=== PATIENT | male | born 1975 | race Caucasian/White ===

== ENCOUNTER 2022-10-30 05:51 | Emergency (ER) | payer BC ==
[2022-10-30] MEDS ORDERED: AZITHROMYCIN 250 MG TAB ONE (06:22)
[2022-10-30 07:36] LABS: SARS-COV-2 RT PCR NEGATIVE (NEGATIVE)
--- NOTE | 2022-10-30 07:45 | EDPHYS ---
Physician Documentation [facility] Name: John Villalobos Age: 47 yrs Sex: Male : 1975 Arrival Date: 10/30/2022 Time: 06:00 Bed 7 Private MD: Teja Castro HPI: 10/30 06:08 This 47 yrs old Male presents to ER via Ambulatory with complaints of rony Breathing Difficulty. 06:08 The patient has shortness of breath at rest, with light activity. Onset: The rony symptoms/episode began/occurred 1 day(s) ago. Duration: The symptoms are continuous. Historical: - Allergies: 06:02 No Known Allergies; kd3 - Home Meds: 06:02 losartan oral [Active]; amlodipine oral [Active]; atorvastatin oral [Active]; kd3 - PMHx: 06:02 fatty liver disease; Hypercholesterolemia; Hypertensive disorder; kd3 - Immunization history:: Adult Immunizations up to date, Client reports receiving the Ernesto \T\ Ernesto single-dose vaccine. - Social history:: Smoking status: Patient denies any tobacco usage or history of. ROS: 06:54 Constitutional: Negative for fever, chills, and weight loss, Eyes: Negative for injury, rony pain, redness, and discharge, ENT: Negative for injury, pain, and discharge, Neck: Negative for injury, pain, and swelling, Cardiovascular: Negative for chest pain, palpitations, and edema, Abdomen/GI: Negative for abdominal pain, nausea, vomiting, diarrhea, and constipation, Back: Negative for injury and pain, : Negative for injury, bleeding, discharge, and swelling, MS/Extremity: Negative for injury and deformity, Skin: Negative for injury, rash, and discoloration, Neuro: Negative for headache, weakness, numbness, tingling, and seizure, Psych: Negative for depression, anxiety, suicide ideation, homicidal ideation, and hallucinations, Allergy/Immunology: Negative for hives, rash, and allergies, Endocrine: Negative for neck swelling, polydipsia, polyuria, polyphagia, and marked weight changes, Hematologic/Lymphatic: Negative for swollen nodes, abnormal bleeding, and unusual bruising. 06:54 Respiratory: Positive for cough, shortness of breath. Exam: 06:54 Constitutional: This is a well developed, well nourished patient who is awake, alert, rony and in no acute distress. Head/Face: Normocephalic, atraumatic. Eyes: Pupils equal round and reactive to light, extra-ocular motions intact. Lids and lashes normal. Conjunctiva and sclera are non-icteric and not injected. Cornea within normal limits. Periorbital areas with no swelling, redness, or edema. Neck: Trachea midline, no thyromegaly or masses palpated, and no cervical lymphadenopathy. Supple, full range of motion without nuchal rigidity, or vertebral point tenderness. No Meningismus. Chest/axilla: Normal chest wall appearance and motion. Nontender with no deformity. No lesions are appreciated. Cardiovascular: Regular rate and rhythm with a normal S1 and S2. No gallops, murmurs, or rubs. Normal PMI, no JVD. No pulse deficits. Respiratory: Lungs have equal breath sounds bilaterally, clear to auscultation and percussion. No rales, rhonchi or wheezes noted. No increased work of breathing, no retractions or nasal flaring. Abdomen/GI: Soft, non-tender, with normal bowel sounds. No distension or tympany. No guarding or rebound. No evidence of tenderness throughout. Back: No spinal tenderness. No costovertebral tenderness. Full range of motion. Male : Normal genitalia with no discharge or lesions. Skin: Warm, dry with normal turgor. Normal color with no rashes, no lesions, and no evidence of cellulitis. MS/ Extremity: Pulses equal, no cyanosis. Neurovascular intact. Full, normal range of motion. Neuro: Awake and alert, GCS 15, oriented to person, place, time, and situation. Cranial nerves II-XII grossly intact. Motor strength 5/5 in all extremities. Sensory grossly intact. Cerebellar exam normal. Normal gait. Psych: Awake, alert, with orientation to person, place and time. Behavior, mood, and affect are within normal limits. 06:54 ECG was reviewed by the Attending Physician. Vital Signs: 06:00 BP 143 / 93; Pulse 92; Resp 16; Temp 98.4(O); Pulse Ox 100% on R/A; Weight 78.02 kg; kd3 Height 5 ft. 8 in. (172.72 cm); Pain 0/10; 07:27 BP 113 / 81; Pulse 77; Resp 18; Pulse Ox 97% on R/A; ph 07:53 BP 113 / 81; Pulse 79; Resp 18; Pulse Ox 98% ; Pain 0/10; ll1 06:00 Body Mass Index 26.15 (78.02 kg, 172.72 cm) kd3 MDM: 06:06 Patient medically screened. rony 07:12 Differential diagnosis: reactive airway disease. Antibiotic administration: Not rony indicated, the patient does not have an appreciated infiltrate. Immunization status:. Data reviewed: vital signs, nurses notes, lab test result(s), EKG. Consideration of Admission/Observation Escalation of care including admission/observation considered. 10/30 06:08 Order name: COVID-19/FLU A+B; Complete Time: 07:45 rony 10/30 06:08 Order name: Chest Pa And Lat (2 Views) XRAY rony EC:54 Rate is 83 beats/min. Rhythm is regular. QRS [place] is Normal. DC interval is normal. QRS rony interval is normal. QT interval is normal. No Q waves. T waves are Normal. No ST changes noted. Clinical impression: Normal ECG and No evidence of ischemia. Interpreted by me. Reviewed by me. Administered Medications: 06:20 Drug: Zithromax (azithromycin) 500 mg Route: PO; ll3 07:55 Follow up: Response: No adverse reaction ll1 Disposition Summary: 10/30/22 07:45 Discharge Ordered Location: Home rony Problem: new rony Symptoms: have improved rony Condition: Stable rony Diagnosis - Acute upper respiratory infection, unspecified rony - Palpitations rony Followup: rony - With: Private Physician - When: 2 - 3 days - Reason: Recheck today's complaints, Continuance of care, Re-evaluation by your physician Discharge Instructions: - Discharge Summary Sheet rony - Palpitations rony - Cool Mist Vaporizer rony - Upper Respiratory Infection, Adult, [id number] rony - Palpitations, [id number] rony - Cough, Adult rony Forms: - Medication Reconciliation Form rony - Thank You Letter rony - Antibiotic Education rony - Prescription Opioid Use rony - Work release form kj1 Prescriptions: - Zithromax Z-Naveed 250 mg Oral Tablet - take 1 tablet by ORAL route as directed for 5 days Day 1 - take two (2) tablets rony one time. Day 2, 3, 4 , 5 take one (1) tablet once daily.; 6 tablet; Refills: 0, Product Selection Permitted - Medrol (Naveed) 4 mg Oral Tablets, Dose Pack - take 1 tablet by ORAL route as directed - follow package instructions; 1 rony packet; Refills: 0, Product Selection Permitted Signatures: Dispatcher [employer] Teja Herron, Madelaine Olivier MD, cha, RN RN ll3 Em Pelaez RN RN kd3 Nick Wiley RN ll1
--- NOTE | 2022-10-30 07:45 | ER ---
Nurse's Notes [facility] Name: John Villalobos Age: 47 yrs Sex: Male : 1975 Arrival Date: 10/30/2022 Time: 06:00 Bed 7 Private MD: Diagnosis: Acute upper respiratory infection, unspecified;Palpitations Presentation: 10/30 06:00 Chief complaint: Patient states: I started to go to work this morning around 5 and i am kd3 having a bit of a hard time breathing. I was sick a few weeks ago but i had gotten better. I do feel pretty congested. Coronavirus screen: Vaccine status: Patient reports receiving the 2nd dose of the covid vaccine. Ebola Screen: No symptoms or risks identified at this time. Initial Sepsis Screen: Does the patient meet any 2 criteria? No. Patient's initial sepsis screen is negative. Does the patient have a suspected source of infection? No. Patient's initial sepsis screen is negative. Risk Assessment: Do you want to hurt yourself or someone else? Patient reports no desire to harm self or others. Onset of symptoms was October 30, 2022. 06:00 Method Of Arrival: Ambulatory kd3 06:00 Acuity: EFRAIN 4 kd3 Triage Assessment: 06:02 General: Appears in no apparent distress. Behavior is calm, cooperative. Pain: Denies kd3 pain. Neuro: Level of Consciousness is awake, alert, obeys commands, Oriented to person, place, time, situation. Cardiovascular: Patient's skin is warm and dry. Respiratory: Airway is patent Trachea midline Respiratory effort is even, unlabored, Respiratory pattern is regular, symmetrical. 06:07 Respiratory: Breath sounds are clear bilaterally. kd3 Historical: - Allergies: 06:02 No Known Allergies; kd3 - Home Meds: 06:02 losartan oral [Active]; amlodipine oral [Active]; atorvastatin oral [Active]; kd3 - PMHx: 06:02 fatty liver disease; Hypercholesterolemia; Hypertensive disorder; kd3 - Immunization history:: Adult Immunizations up to date, Client reports receiving the Ernesto \T\ Ernesto single-dose vaccine. - Social history:: Smoking status: Patient denies any tobacco usage or history of. Screenin:26 [facility] ED Fall Risk Assessment (Adult) History of falling in the last 3 months, ph including since admission No falls in past 3 months (0 pts) Confusion or Disorientation No (0 pts) Intoxicated or Sedated No (0 pts) Impaired Gait No (0 pts) Mobility Assist Device Used No (0 pt) Altered Elimination No (0 pt) Score/Fall Risk Level 0 - 2 = Low Risk Oriented to surroundings, Maintained a safe environment. Abuse screen: Denies threats or abuse. Denies injuries from another. Nutritional screening: No deficits noted. Tuberculosis screening: No symptoms or risk factors identified. Assessment: 06:00 General: Appears uncomfortable, Behavior is calm, cooperative. Pain: Denies pain. ll3 Neuro: Level of Consciousness is awake, alert, obeys commands, Oriented to person, place, time, situation, Reports dizziness. Cardiovascular: Reports lightheadedness, palpitations, shortness of breath, Denies chest pain, diaphoresis. Respiratory: Reports Difficulty breathing Airway is patent Respiratory effort is even, unlabored, Respiratory pattern is regular, symmetrical. Derm: Skin is pink, warm \T\ dry. 07:00 Reassessment: Report received from third shift lieutenant RN. ll1 07:54 Reassessment: No changes from previously documented assessment. Patient and/or family ll1 updated on plan of care and expected duration. Pain level reassessed. Patient is alert, oriented x 3, equal unlabored respirations, skin warm/dry/pink. Patient states feeling better. Patient states symptoms have improved. Vital Signs: 06:00 BP 143 / 93; Pulse 92; Resp 16; Temp 98.4(O); Pulse Ox 100% on R/A; Weight 78.02 kg; kd3 Height 5 ft. 8 in. (172.72 cm); Pain 0/10; 07:27 BP 113 / 81; Pulse 77; Resp 18; Pulse Ox 97% on R/A; ph 07:53 BP 113 / 81; Pulse 79; Resp 18; Pulse Ox 98% ; Pain 0/10; ll1 06:00 Body Mass Index 26.15 (78.02 kg, 172.72 cm) kd3 ED Course: 06:00 Patient arrived in ED. kd3 06:02 Triage completed. kd3 06:02 Arm band placed on right wrist. kd3 06:06 Teja Cordova MD is Attending Physician. rony 06:21 Chest Pa And Lat (2 Views) XRAY In Process Unspecified. EDMS 06:31 EKG completed in triage. Results shown to MD. ll3 07:25 Felicia Mendoza, RN is Primary Nurse. ph 07:27 Patient has correct armband on for positive identification. Bed in low position. Call light in reach. Side rails up X 1. Client placed on continuous cardiac and pulse oximetry monitoring. NIBP monitoring applied. 07:54 No provider procedures requiring assistance completed. Patient did not have IV access ll1 during this emergency room visit. Administered Medications: 06:20 Drug: Zithromax (azithromycin) 500 mg Route: PO; ll3 07:55 Follow up: Response: No adverse reaction ll1 Medication: 07:27 VIS not applicable for this client. ph Outcome: 07:45 Discharge ordered by . [facility] 07:55 Discharged to home ambulatory. ll1 07:55 Condition: stable 07:55 Discharge instructions given to patient, Instructed on discharge instructions, follow up and referral plans. medication usage, Demonstrated understanding of instructions, follow-up care, medications, Prescriptions given X 2. 07:55 Patient left the ED. ll1 Signatures: Dispatcher [employer] EDMS Teja Cordova MD MD cha Hall, Patricia, RN RN Nick Espinal RN RN ll1 Madelaine Vasquez RN RN ll3 Em Pelaez RN RN kd3
[2022-10-30 08:46] VITALS: BP 113/81; O2SAT 98
--- NOTE | 2022-10-30 14:09 | RAD REPORT ---
EXAM DESCRIPTION: RAD - Chest Pa And Lat (2 Views) - 10/30/2022 6:19 am CLINICAL HISTORY: 47 years Male, COUGH COMPARISON: None. TECHNIQUE: PA and Lateral views of the chest performed on 10/30/2022 at 6:15 AM FINDINGS: The lungs are well expanded and are clear. The costophrenic sulci are clear. There is no e vidence of a pneumothorax. The cardiac silhouette is normal in size. The mediastinal contours are normal. No acute osseous abnormalities are identified. There are mild degenerative changes along the thoracic spine. No focal soft tissue abnormalities are identified. IMPRESSION: No evidence of acute intrathoracic disease. Electronically signed by: Sasha Hancock DO 10/30/2022 6:29 AM PULVERIZER OPERATOR Due to temporary technical issues with the PACS/Fluency reporting system, reports are being signed by the in house radiologists without review as a courtesy to insure prompt reporting. The interpreting radiologist is fully responsible for the content of the report.
--- NOTE | 2022-10-31 17:35 | EKG ---
Test Date: 2022-10-30 Test Time: 06:26:39 Rate And Cost Analyst: LL MEASUREMENT RESULTS: Intervals: Rate: 83 IA: 148 QRSD: 100 QT: 376 QTc: 441 [place]: P: 37 IA: 148 QRS: 6 T: 32 INTERPRETIVE STATEMENTS: Normal sinus rhythm Normal ECG No previous ECG available for comparison Electronically Signed On 10-31-22 17:32:09 WATER PURIFICATION CHEMIST by Nicola Ingram
== END 2022-10-30 07:55 | disposition home or self-care (01) ==
LOC: ER 05:51
DX: J06.9 Acute upper respiratory infection, unspecified (principal); R00.2 Palpitations; K76.0 Fatty (change of) liver, not elsewhere classified; E78.00 Pure hypercholesterolemia, unspecified; I10 Essential (primary) hypertension; Z20.822 Contact with and (suspected) exposure to COVID-19
CPT/HCPCS: 0240U; 71046; Q0144; 93005

== ENCOUNTER 2025-02-21 05:17 | Emergency (ER) | payer BC ==
--- OUTSIDE RECORDS SUMMARY | 2025-02-21 05:22 | XMS REPORT | Continuity of Care Document ---
Demographics Address [address] [place] [address] Mobile Phone [phone] Email Address Preferred Language Mohawk Marital Status Unknown Mormonism Affiliation Unknown Race Unknown Additional Race(s) Unavailable Ethnic Group Unknown Author Name Unknown Address [address] [place] [address] [facility] Address [address] [place] [address] Care Team Providers Care Business Systems Advisor Name Role Phone ABBE FINLEY Primary Care Physician Unavailab ABBE De La Paz Attending Clinician Unavailable Abbe Finley MD Attending Clinician [phone] Abbe Finley MD Attending Clinician [phone] Doctor Unassigned, Eliza Attending Clinician U ALCIDES Judge Attending Clinician Unavailable Alcides Mendoza MD Attending Clinician [phone] Aubrie Mohan MA Attending Clinician UnaGrethcen Olivo Attending Clinician [phone] Rishi Smith MD, Randolph Islas Attending Clinician [phone] Otis Snoi DO Attending Clinician [phone] ALCIDES MENDOZA Admitting Clinician Unavailable ABBE FINLEY Admitting Clinician Unavailable Payers Payer Name Policy Type Policy Number Effective Date Expirati on Date Source Problems Condition Name Condition Details Condition Category Status Onset Date Resolution Date Last Treatment Date Treating Clinician Comments Source Essential hypertensi on Essential hypertensi on Disease Active 2018-10 00:00: 00 Overview: Formattin g of this note might be different from the original. Bp elevated in clinicDas h diet BP log [facility] Mixed hyperlipid emia Mixed hyperlipid emia Disease Active 2018-10 00:00: 00 Overview: Formattin g of this note might be different from the original. Monitor lipids [facility] Chronic kidney disease, unspecifie d CKD stage Chronic kidney disease, unspecifie d CKD stage Disease Active 2018-10 00:00: 00 Overview: Formattin g of this note might be different from the original. labsF/u with Nephrolog y [facility] Elevated alkaline phosphatas e level Elevated alkaline phosphatas e level Disease Active 2018-10 00:00: 00 Overview: Formattin g of this note might be different from the original. repeat hepatic functionG GT [facility] Prediabete s Prediabete s Disease Active 2018-10 00:00: 00 Overview: Formattin g of this note might be different from the original. low carb, low sugar dietIncre ángel aerobic exercisem onitor [id number] [facility] Class 1 obesity due to excess calories with serious comorbidit y and body mass index (BMI) of 32.0 to 32.9 in adult Class 1 obesity due to excess calories with serious comorbidit y and body mass index (BMI) of 32.0 to 32.9 in adult Disease Active 2018-10 00:00: 00 Overview: Formattin g of this note might be different from the original. Lifestyle modificat ion [facility] Class 1 obesity due to excess calories with serious comorbidit y and body mass index (BMI) of 32.0 to 32.9 in adult Class 1 obesity due to excess calories with serious comorbidit y and body mass index (BMI) of 32.0 to 32.9 in adult Disease Active 2018-10 00:00: 00 Overview: Formattin g of this note might be different from the original. Lifestyle modificat ion [facility] Allergies, Adverse Reactions, Alerts Allergy Name Allergy Type Status Severity Reaction(s) Onset Date Inactive Date Treating Clinician Comments Source NO KNOWN ALLERGIE S Drug Class Active [facility] Social History Social Habit Start Date Stop Date Quantity Comments Source [facility] 2024-10-18 00:00:00 2024-10-18 00:00:00 [facility] Alcoholic beverage intake 2024-10-18 00:00:00 2024-10-18 00:00:00 Ex-drinker (finding) [facility] Alcohol intake 2023-09-14 00:00:00 2023-09-14 00:00:00 Ex-drinker (finding) [facility] Exposure to SARS-CoV-2 (event) 2023-03-02 00:00:00 2023-03-12 07:06:00 Not sure [facility] Tobacco use and exposure 2022-09-11 00:00:00 2022-09-11 00:00:00 Smokeless tobacco non-user [facility] Sex assigned at 1975 00:00:00 1975 00:00:00 [facility] Smoking Status Start Date Stop Date Source Never smoked tobacco [facility] Medications Ordered Medication Name Filled Medication Name Start Date Stop Date Current Medication? Ordering Clinician Indication Dosage Frequency Signature (SIG) Comments Components Source losartan 100 mg tablet 10-18 00:00: 00 Yes [id number] 100mg Take 1 tablet by mouth in the morning. [facility] atorvastati n 10 mg tablet 10-18 00:00: 00 Yes [id number] 10mg Take 1 tablet by mouth at bedtime. [facility] amLODIPine 10 mg tablet 10-18 00:00: 00 Yes [id number] 10mg Take 1 tablet by mouth in the morning. [facility] losartan 100 mg tablet 2023-10 00:00: 00 10-18 00:00 :00 No [id number] 100mg Take 1 tablet by mouth in the morning. [facility] atorvastati n 10 mg tablet 2023-10 00:00: 00 10-18 00:00 :00 No [id number] 10mg Take 1 tablet by mouth at bedtime. [facility] amLODIPine 10 mg tablet 2023-10 00:00: 00 10-18 00:00 :00 No [id number] 10mg Take 1 tablet by mouth in the morning. [facility] losartan 100 mg tablet 2022-10 00:00: 00 09-29 00:00 :00 No [id number] 100mg Take 1 tablet by mouth in the morning. [facility] atorvastati n 10 mg tablet 2022-10 2- 00:00: 00 09-29 00:00 :00 No [id number] 10mg Take 1 tablet by mouth at bedtime. [facility] amLODIPine 10 mg tablet 2022-10 2- 00:00: 00 09-29 00:00 :00 No [id number] 10mg Take 1 tablet by mouth in the morning. [facility] amLODIPine 10 mg tablet 03-12 00:00: 00 09-14 00:00 :00 No [id number] 10mg Take 1 tablet by mouth in the morning. [facility] atorvastati n 10 mg tablet 03-12 00:00: 00 09-14 00:00 :00 No [id number] 10mg Take 1 tablet by mouth at bedtime. [facility] losartan 100 mg tablet 03-12 00:00: 00 09-14 00:00 :00 No [id number] 100mg Take 1 tablet by mouth in the morning. [facility] ibuprofen (IBU) tablet 800 mg 10-17 08:15: 00 10-17 08:41 :00 No 800mg 800 mg, Oral, ONCE, 1 dose, On Thu10/17/22 at 0215, CARMEN [facility] amLODIPine 10 mg tablet 2021-10 00:00: 00 03-12 00:00 :00 No [id number] 10mg Take 1 tablet by mouth in the morning. [facility] atorvastati n 10 mg tablet 2021-10- 00:00: 00 03-12 00:00 :00 No [id number] 10mg Take 1 tablet by mouth at bedtime. [facility] losartan 100 mg tablet 2021-10 00:00: 00 03-12 00:00 :00 No [id number] 100mg Take 1 tablet by mouth in the morning. [facility] amLODIPine 10 mg tablet 2021-10 0-11 00:00: 00 09-11 00:00 :00 No [id number] 10mg Take 1 tablet by mouth in the morning. [facility] losartan 100 mg tablet 2021-10 0-07 00:00: 00 09-11 00:00 :00 No [id number] 100mg Take 1 tablet by mouth in the morning. [facility] atorvastati n 10 mg tablet 2021-10 0-07 00:00: 00 09-11 00:00 :00 No [id number] 10mg Take 1 tablet by mouth at bedtime. [facility] AMLODIPINE 10 mg tablet 9- 00:00: 00 07-22 00:00 :00 No [id number] Take 1 tablet by mouth once daily [facility] LOSARTAN 100 mg tablet 7-05 00:00: 00 07-18 00:00 :00 No [id number] Take 1 tablet by mouth once daily [facility] ATORVASTATI N 10 mg tablet 0 7-05 00:00: 00 07-18 00:00 :00 No [id number] 10mg TAKE 1 TABLET BY MOUTH AT BEDTIME [facility] LOSARTAN 100 mg tablet 4-07 00:00: 00 04-15 00:00 :00 No [id number] Take 1 tablet by mouth once daily [facility] ATORVASTATI N 10 mg tablet 0 4-04 00:00: 00 04-15 00:00 :00 No [id number] 10mg TAKE 1 TABLET BY MOUTH AT BEDTIME [facility] amLODIPine 10 mg tablet 0 3-08 00:00: 00 06-12 00:00 :00 No [id number] 10mg Take 1 tablet by mouth daily. [facility] amLODIPine 5 mg tablet 2019-10 0-05 00:00: 00 10-18 00:00 :00 No [id number] 5mg Take 1 tablet by mouth daily. [facility] losartan 50 mg tablet 2019-10 00:00: 00 10-18 00:00 :00 No [id number] 50mg Take 1 tablet by mouth daily. [facility] atorvastati n 10 mg tablet 2019-10 00:00: 00 10-18 00:00 :00 No [id number] 10mg Take 1 tablet by mouth at bedtime. [facility] Immunizations Ordered Immunization Name Filled Immunization Name Date Status Comments Source Flu Injectable MDCK Pres-Free (FLUCELVAX) 2024-10-18 00:00:00 Completed [facility] Influenza Virus Vaccine Quad IM, Preserv and ABX Free 6 MO-64 YRS (FLUCELVAX) 2023-09-14 00:00:00 Completed [facility] Influenza Virus Vaccine Quad IM, Preserv and ABX Free 6 MO-64 YRS 2022-09-11 00:00:00 Completed [facility] Influenza Virus Vaccine Quad IM, Preserv and ABX Free 6 MO-64 YRS 2022-09-11 00:00:00 Completed [facility] Influenza Virus Vaccine Quad IM, Preserv and ABX Free 6 MO-64 YRS 2022-09-11 00:00:00 Completed [facility] Influenza Virus Vaccine Quad IM, Preserv and ABX Free 6 MO-64 YRS 2022-09-11 00:00:00 Completed [facility] Influenza Virus Vaccine Quad IM, Preserv and ABX Free 6 MO-64 YRS 2022-09-11 00:00:00 Completed [facility] Influenza Virus Vaccine Quad IM, Preserv and ABX Free 6 MO-64 YRS 2022-09-11 00:00:00 Completed [facility] Influenza Virus Vaccine Quad IM, Preserv and ABX Free 6 MO-64 YRS 2022-09-11 00:00:00 Completed [facility] Influenza Virus Vaccine Quad IM, Preserv and ABX Free 6 MO-64 YRS (FLUCELVAX) 2022-09-11 00:00:00 Completed Influenza Virus Vaccine Quad IM, Preserv and ABX Free 6 MO-64 YRS 2021-12-17 00:00:00 Completed [facility] Influenza Virus Vaccine Quad IM, Preserv and ABX Free 6 MO-64 YRS 2021-12-17 00:00:00 Completed [facility] Influenza Virus Vaccine Quad IM, Preserv and ABX Free 6 MO-64 YRS 2021-12-17 00:00:00 Completed [facility] Influenza Virus Vaccine Quad IM, Preserv and ABX Free 6 MO-64 YRS 2021-12-17 00:00:00 Completed [facility] Influenza Virus Vaccine Quad IM, Preserv and ABX Free 6 MO-64 YRS 2021-12-17 00:00:00 Completed [facility] Influenza Virus Vaccine Quad IM, Preserv and ABX Free 6 MO-64 YRS 2021-12-17 00:00:00 Completed [facility] Influenza Virus Vaccine Quad IM, Preserv and ABX Free 6 MO-64 YRS 2021-12-17 00:00:00 Completed [facility] Influenza Virus Vaccine Quad IM, Preserv and ABX Free 6 MO-64 YRS 2021-12-17 00:00:00 Completed [facility] Influenza Virus Vaccine Quad IM, Preserv and ABX Free 6 MO-64 YRS 2021-12-17 00:00:00 Completed [facility] Influenza Virus Vaccine Quad IM, Preserv and ABX Free 6 MO-64 YRS 2021-12-17 00:00:00 Completed [facility] Influenza Virus Vaccine Quad IM, Preserv and ABX Free 6 MO-64 YRS 2021-12-17 00:00:00 Completed [facility] Influenza Virus Vaccine Quad IM, Preserv and ABX Free 6 MO-64 YRS 2021-12-17 00:00:00 Completed [facility] Influenza Virus Vaccine Quad IM, Preserv and ABX Free 6 MO-64 YRS 2021-12-17 00:00:00 Completed [facility] Influenza Virus Vaccine Quad IM, Preserv and ABX Free 6 MO-64 YRS 2021-12-17 00:00:00 Completed [facility] Influenza Virus Vaccine Quad IM, Preserv and ABX Free 6 MO-64 YRS 2021-12-17 00:00:00 Completed [facility] Influenza Virus Vaccine Quad IM, Preserv and ABX Free 6 MO-64 YRS 2021-12-17 00:00:00 Completed [facility] Influenza Virus Vaccine Quad IM, Preserv and ABX Free 6 MO-64 YRS 2021-12-17 00:00:00 Completed [facility] Influenza Virus Vaccine Quad IM, Preserv and ABX Free 6 MO-64 YRS 2021-12-17 00:00:00 Completed [facility] Influenza Virus Vaccine Quad IM, Preserv and ABX Free 6 MO-64 YRS 2021-12-17 00:00:00 Completed [facility] Influenza Virus Vaccine Quad IM, Preserv and ABX Free 6 MO-64 YRS (FLUCELVAX) 2021-12-17 00:00:00 Completed [facility] Juan COVID-19 Vaccine Juna COVID-19 Vaccine 2021-05-15 00:00:00 Completed SARS-COV-2 COVID-19 JUAN/J&J VACCINE 2021-05-15 00:00:00 Completed [facility] SARS-COV-2 COVID-19 JUAN/J&J VACCINE 2021-05-15 00:00:00 Completed [facility] SARS-COV-2 COVID-19 JUAN/J&J VACCINE 2021-05-15 00:00:00 Completed [facility] SARS-COV-2 COVID-19 JUAN/J&J VACCINE 2021-05-15 00:00:00 Completed [facility] SARS-COV-2 COVID-19 JUAN/J&J VACCINE 2021-05-15 00:00:00 Completed [facility] SARS-COV-2 COVID-19 JUAN/J&J VACCINE 2021-05-15 00:00:00 Completed [facility] SARS-COV-2 COVID-19 JUAN/J&J VACCINE 2021-05-15 00:00:00 Completed [facility] SARS-COV-2 COVID-19 JUAN/J&J VACCINE 2021-05-15 00:00:00 Completed [facility] SARS-COV-2 COVID-19 JUAN/J&J VACCINE 2021-05-15 00:00:00 Completed [facility] SARS-COV-2 COVID-19 JUAN/J&J VACCINE 2021-05-15 00:00:00 Completed [facility] SARS-COV-2 COVID-19 JUAN/J&J VACCINE 2021-05-15 00:00:00 Completed [facility] SARS-COV-2 COVID-19 JUAN/J&J VACCINE 2021-05-15 00:00:00 Completed [facility] SARS-COV-2 COVID-19 JUAN/J&J VACCINE 2021-05-15 00:00:00 Completed [facility] SARS-COV-2 COVID-19 JUAN/J&J VACCINE 2021-05-15 00:00:00 Completed [facility] SARS-COV-2 COVID-19 JUAN/J&J VACCINE 2021-05-15 00:00:00 Completed [facility] SARS-COV-2 COVID-19 JUAN/J&J VACCINE 2021-05-15 00:00:00 Completed [facility] SARS-COV-2 COVID-19 JUAN/J&J VACCINE 2021-05-15 00:00:00 Completed [facility] SARS-COV-2 COVID-19 JUAN/J&J VACCINE 2021-05-15 00:00:00 Completed [facility] SARS-COV-2 COVID-19 JUAN/J&J VACCINE 2021-05-15 00:00:00 Completed [facility] SARS-COV-2 COVID-19 JUAN/J&J VACCINE 2021-05-15 00:00:00 Completed Influenza Virus Vaccine Quad .5 mL IM 6+ MO 2020-09-17 00:00:00 Completed [facility] Influenza Virus Vaccine Quad .5 mL IM 6+ MO 2020-09-17 00:00:00 Completed [facility] Influenza Virus Vaccine Quad .5 mL IM 6+ MO 2020-09-17 00:00:00 Completed [facility] Influenza Virus Vaccine Quad .5 mL IM 6+ MO 2020-09-17 00:00:00 Completed [facility] Influenza Virus Vaccine Quad .5 mL IM 6+ MO 2020-09-17 00:00:00 Completed [facility] Influenza Virus Vaccine Quad .5 mL IM 6+ MO 2020-09-17 00:00:00 Completed [facility] Influenza Virus Vaccine Quad .5 mL IM 6+ MO 2020-09-17 00:00:00 Completed [facility] Influenza Virus Vaccine Quad .5 mL IM 6+ MO 2020-09-17 00:00:00 Completed [facility] Influenza Virus Vaccine Quad .5 mL IM 6+ MO 2020-09-17 00:00:00 Completed [facility] Influenza Virus Vaccine Quad .5 mL IM 6+ MO 2020-09-17 00:00:00 Completed [facility] Influenza Virus Vaccine Quad .5 mL IM 6+ MO 2020-09-17 00:00:00 Completed [facility] Influenza Virus Vaccine Quad .5 mL IM 6+ MO 2020-09-17 00:00:00 Completed [facility] Influenza Virus Vaccine Quad .5 mL IM 6+ MO 2020-09-17 00:00:00 Completed [facility] Influenza Virus Vaccine Quad .5 mL IM 6+ MO 2020-09-17 00:00:00 Completed [facility] Influenza Virus Vaccine Quad .5 mL IM 6+ MO 2020-09-17 00:00:00 Completed [facility] Influenza Virus Vaccine Quad .5 mL IM 6+ MO 2020-09-17 00:00:00 Completed [facility] Influenza Virus Vaccine Quad .5 mL IM 6+ MO 2020-09-17 00:00:00 Completed [facility] Influenza Virus Vaccine Quad .5 mL IM 6+ MO 2020-09-17 00:00:00 Completed [facility] Influenza Virus Vaccine Quad .5 mL IM 6+ MO 2020-09-17 00:00:00 Completed [facility] Influenza Virus Vaccine Quad .5 mL IM 6+ MO (FLUZONE/FLULAVAL/F LUARIX) 2020-09-17 00:00:00 Completed [facility] TDAP (ADACEL) VACCINE 2019-09-29 00:00:00 Completed [facility] TDAP (ADACEL) VACCINE 2019-09-29 00:00:00 Completed [facility] TDAP (ADACEL) VACCINE 2019-09-29 00:00:00 Completed [facility] TDAP (ADACEL) VACCINE 2019-09-29 00:00:00 Completed [facility] TDAP (ADACEL) VACCINE 2019-09-29 00:00:00 Completed [facility] TDAP (ADACEL) VACCINE 2019-09-29 00:00:00 Completed [facility] TDAP (ADACEL) VACCINE 2019-09-29 00:00:00 Completed [facility] TDAP (ADACEL) VACCINE 2019-09-29 00:00:00 Completed [facility] TDAP (ADACEL) VACCINE 2019-09-29 00:00:00 Completed [facility] TDAP (ADACEL) VACCINE 2019-09-29 00:00:00 Completed [facility] TDAP (ADACEL) VACCINE 2019-09-29 00:00:00 Completed [facility] TDAP (ADACEL) VACCINE 2019-09-29 00:00:00 Completed [facility] TDAP (ADACEL) VACCINE 2019-09-29 00:00:00 Completed [facility] TDAP (ADACEL) VACCINE 2019-09-29 00:00:00 Completed [facility] TDAP (ADACEL) VACCINE 2019-09-29 00:00:00 Completed [facility] TDAP (ADACEL) VACCINE 2019-09-29 00:00:00 Completed [facility] TDAP (ADACEL) VACCINE 2019-09-29 00:00:00 Completed [facility] TDAP (ADACEL) VACCINE 2019-09-29 00:00:00 Completed [facility] TDAP (ADACEL) VACCINE 2019-09-29 00:00:00 Completed [facility] TDAP (ADACEL) VACCINE 2019-09-29 00:00:00 Completed [facility] TDAP (ADACEL) VACCINE Unknown Completed [facility] Influenza Virus Vaccine Quad .5 mL IM 6+ MO (FLUZONE/FLULAVAL/F LUARIX) Unknown Completed [facility] SARS-COV-2 COVID-19 JUAN/J&J VACCINE Unknown Completed [facility] Influenza Virus Vaccine Quad IM, Preserv and ABX Free 6 MO-64 YRS (FLUCELVAX) Unknown Completed [facility] TDAP (ADACEL) VACCINE Unknown Completed [facility] Influenza Virus Vaccine Quad .5 mL IM 6+ MO (FLUZONE/FLULAVAL/F LUARIX) Unknown Completed [facility] SARS-COV-2 COVID-19 JUAN/J&J VACCINE Unknown Completed [facility] Influenza Virus Vaccine Quad IM, Preserv and ABX Free 6 MO-64 YRS (FLUCELVAX) Unknown Completed [facility] TDAP (ADACEL) VACCINE Unknown Completed [facility] Influenza Virus Vaccine Quad .5 mL IM 6+ MO (FLUZONE/FLULAVAL/F LUARIX) Unknown Completed [facility] SARS-COV-2 COVID-19 JUAN/J&J VACCINE Unknown Completed [facility] Influenza Virus Vaccine Quad IM, Preserv and ABX Free 6 MO-64 YRS (FLUCELVAX) Unknown Completed [facility] TDAP (ADACEL) VACCINE Unknown Completed [facility] Influenza Virus Vaccine Quad .5 mL IM 6+ MO (FLUZONE/FLULAVAL/F LUARIX) Unknown Completed [facility] TDAP (ADACEL) VACCINE Unknown Completed [facility] TDAP (ADACEL) VACCINE Unknown Completed [facility] TDAP (ADACEL) VACCINE Unknown Completed [facility] Influenza Virus Vaccine Quad .5 mL IM 6+ MO (FLUZONE/FLULAVAL/F LUARIX) Unknown Completed [facility] SARS-COV-2 COVID-19 JUAN/J&J VACCINE Unknown Completed [facility] Influenza Virus Vaccine Quad IM, Preserv and ABX Free 6 MO-64 YRS (FLUCELVAX) Unknown Completed [facility] TDAP (ADACEL) VACCINE Unknown Completed [facility] Influenza Virus Vaccine Quad .5 mL IM 6+ MO (FLUZONE/FLULAVAL/F LUARIX) Unknown Completed [facility] SARS-COV-2 COVID-19 JUAN/J&J VACCINE Unknown Completed [facility] Influenza Virus Vaccine Quad IM, Preserv and ABX Free 6 MO-64 YRS (FLUCELVAX) Unknown Completed [facility] Vital Signs Vital Name Observation Time Observation Value Comments S jarvis Systolic blood pressure 2024-10-18 17:22:00 102 mm[Hg] [facility] Diastolic blood pressure 2024-10-18 17:22:00 69 mm[Hg] [facility] Heart rate 2024-10-18 17:22:00 81 /min [facility] Body temperature 2024-10-18 17:22:00 36.94 Alysia [facility] Respiratory rate 2024-10-18 17:22:00 18 /min [facility] Body height 2024-10-18 17:22:00 [facility]7 [facility] 2024-10-18 17:22:00 83.689 kg [facility] BMI 2024-10-18 17:22:00 28.05 kg/m2 [facility] Oxygen saturation in Arterial blood by Pulse oximetry 2024-10-18 17:22:00 96 /min [facility] Systolic blood pressure 2023-09-14 14:10:00 133 mm[Hg] [facility] Diastolic blood pressure 2023-09-14 14:10:00 87 mm[Hg] [facility] Heart rate 2023-09-14 14:10:00 84 /min [facility] Body temperature 2023-09-14 14:10:00 36.67 Alysia [facility] Respiratory rate 2023-09-14 14:10:00 16 /min [facility] Body height 2023-09-14 14:10:00 172.7 cm [facility] Body weight 2023-09-14 14:10:00 83.371 kg [facility] BMI 2023-09-14 14:10:00 27.95 kg/m2 [facility] Oxygen saturation in Arterial blood by Pulse oximetry 2023-09-14 14:10:00 99 /min [facility] Systolic blood pressure 2023-03-12 13:06:00 128 mm[Hg] [facility] Diastolic blood pressure 2023-03-12 13:06:00 83 mm[Hg] [facility] Heart rate 2023-03-12 13:06:00 66 /[facility] 2023-03-12 13:06:00 36.5 Alysia [facility] Respiratory rate 2023-03-12 13:06:00 16 /min [facility] Body height 2023-03-12 13:06:00 172.7 cm [facility] Body weight 2023-03-12 13:06:00 81.33 kg [facility] BMI 2023-03-12 13:06:00 27.26 kg/m2 [facility] Oxygen saturation in Arterial blood by Pulse oximetry 2023-03-12 13:06:00 98 /min [facility] Systolic blood pressure 2022-10-17 09:00:00 152 mm[Hg] [facility] Diastolic blood pressure 2022-10-17 09:00:00 96 mm[Hg] [facility] Heart rate 2022-10-17 09:00:00 77 /min [facility] Oxygen saturation in Arterial blood by Pulse oximetry 2022-10-17 09:00:00 97 /min [facility] Body temperature 2022-10-17 07:25:00 37.33 Alysia [facility] Respiratory rate 2022-10-17 07:25:00 18 /min [facility] Systolic blood pressure 2022-09-11 14:09:00 133 mm[Hg] [facility] Diastolic blood pressure 2022-09-11 14:09:00 81 mm[Hg] [facility] Heart rate 2022-09-11 14:03:00 88 /min [facility] Body temperature 2022-09-11 14:03:00 36.33 Alysia [facility] Respiratory rate 2022-09-11 14:03:00 16 /min [facility] Body height 2022-09-11 14:03:00 172.7 cm [facility] Body weight 2022-09-11 14:03:00 82.555 kg [facility] BMI 2022-09-11 14:03:00 27.67 kg/m2 [facility] Oxygen saturation in Arterial blood by Pulse oximetry 2022-09-11 14:03:00 98 /min [facility] Systolic blood pressure 2022-03-17 13:08:00 145 mm[Hg] [facility] Diastolic blood pressure 2022-03-17 13:08:00 89 mm[Hg] [facility] Heart rate 2022-03-17 13:08:00 83 /min [facility] Body temperature 2022-03-17 13:08:00 36.44 Alysia [facility] Respiratory rate 2022-03-17 13:08:00 16 /min [facility] Body height 2022-03-17 13:08:00 172.7 cm [facility] Body weight 2022-03-17 13:08:00 95.709 kg [facility] BMI 2022-03-17 13:08:00 32.08 kg/m2 [facility] Oxygen saturation in Arterial blood by Pulse oximetry 2022-03-17 13:08:00 97 /min [place] [facility] Procedures Procedure Date / Time Performed Performing Clinic[facility] n Source FLU VACC (), 6 MO-64 YRS, .5ML, IM, TIV (FLUCELVAX) 2024-10-18 17:52:21 [facility] FLU VACC (), 6 MO-64 YRS, .5ML, IM, QUAD (FLUCELVAX) 2023-09-14 14:21:27 Tushar [facility] EKG (SCANNED DOCUMENTS) 2023-03-12 05:01:00 Doctor Unassigned, Eliza [facility] SCANNED LAB RESULTS 2023-02-18 05:01:00 Doctor Amarilys cody, Eliza [facility] COMP. METABOLIC PANEL (62416) 2022-10-17 08:35:00 Alcides Mendoza [facility] CBC WITH DIFF 2022-10-17 08:35:00 Alcides [facility] RAPID INFLUENZA A/B 2022-10-17 08:35:00 Alcides Mendoza [facility] COVID-19 (ID NOW RAPID TESTING) 2022-10-17 08:35:00 Alcides Mendoza [facility] XR CHEST 2 VW 2022-10-17 07:45:00 Alcides [facility] CONSENT/REFUSAL FOR DIAGNOSIS AND TREATMENT 2022-10-17 07:18:06 Doctor Unassigned, Eliza [facility] FLU VACC (), 6 MO-64 YRS, .5ML, IM, QUAD (FLUCELVAX) 2022-09-11 14:09:46 Abbe Finley [facility] ASSIGNMENT OF BENEFITS 2022-09-11 14:01:43 Docto r Unassigned, Eliza [facility] SCANNED LAB RESULTS 2022-03-25 05:01:00 Doctor Amarilys mccartygned, Eliza [facility] EXTERNAL FIT DNA 2022-03-23 22:15:00 Doctor Anupam signed, Eliza [facility] Encounters Start Date/Time End Date/Time Encounter Type Admission Type Attending [facility] Facility Care Department Encounter ID Source 2024-10-18 11:20:00 2024-10-18 11:40:00 Office Visit Tushar [facility] 1.2.840.114 350.1.13.10 4.2.7.2.686 [id number] [facility] 2024-10-18 11:20:00 2024-10-18 11:20:00 Outpatient R TUSHAR [facility] [id number] [facility] 2024-09-29 00:00:00 2024-09-29 14:30:03 Telephone Tushar [facility] 1.2.840.114 350.1.13.10 4.2.7.2.686 [id number] [facility] 2024-09-01 00:00:00 2024-09-02 11:42:16 Refill Tushar [facility] 1.2.840.114 350.1.13.10 4.2.7.2.686 [id number] [facility] 2024-03-15 08:00:00 2024-03-15 08:00:00 Outpatient R TUSHAR [facility] [id number] [facility] 2023-09-14 08:00:00 2023-09-14 08:20:00 Office Visit Tushar [facility] 1.2.840.114 350.1.13.10 4.2.7.2.686 [id number] [facility] 2023-09-14 08:00:00 2023-09-14 08:00:00 Outpatient R ABBE FINLEY [facility] [id number] [facility] 2023-08-17 00:00:00 2023-08-17 00:00:[facility] 1.2840.114 350.1.13.10 4.2.7.2.686 [id number] [facility] 2023-03-31 00:00:00 2023-03-31 00:00:00 [facility] 1.20.114 350.1.13.10 4.2.7.2.686 [id number] [facility] 2023-03-19 00:00:00 2023-03-19 00:00:00 Patient Secure Msg Doctor Unassigned, Eliza [facility] 1.2.114 350.1.13.10 4.2.7.2.686 [id number] [facility] 2023-03-12 08:00:00 2023-03-12 08:20:00 Office Visit Tushar [facility] 1.2.114 350.1.13.10 4.2.7.2.686 [id number] [facility] 2023-03-12 08:00:00 2023-03-12 08:00:00 Outpatient R TUSHAR [facility] [id number] [facility] 2023-03-12 00:00:00 2023-03-12 00:00:00 Orders Only Doctor Unassigned, Eliza [facility] 1..114 350.1.13.10 4.2.7.2.686 [id number] [facility] 2023-03-12 00:00:00 2023-03-12 00:00:00 Patient Secure Msg Doctor Unassigned, Eliza [facility] 1.2.840.114 350.1.13.10 4.2.7.2.686 [id number] [facility] 2023-02-28 00:00:00 2023-02-28 00:00:00 Refill Tushar [facility] 1.2840.114 350.1.13.10 4.2.7.2.686 [id number] [facility] 2023-02-18 00:00:00 2023-02-18 00:00:00 Orders Only Doctor Unassigned, Eliza [facility] 1.2840.114 350.1.13.10 4.2.7.2.686 [id number] [id number] [facility] 2022-10-17 01:26:00 2022-10-17 03:35:00 Emergency X ALCIDES MENDOZA [facility] [id number] [facility] 2022-10-17 01:26:00 2022-10-17 03:35:00 Emergency Alcides Mendoza [facility] 1.2840.114 350.1.13.10 4.2.7.2.686 [id number] [facility] 2022-09-11 08:20:00 2022-09-11 08:40:00 Office Visit Tushar [facility] 1.2840.114 350.1.13.10 4.2.7.2.686 [id number] [facility] 2022-09-11 08:20:00 2022-09-11 08:20:00 Outpatient R TUSHAR [facility] [id number] [facility] 2022-09-11 00:00:00 2022-09-11 00:00:00 Orders Only Doctor Unassigned, Eliza [facility] 1.2.840.114 350.1.13.10 4.2.7.2.686 [id number] [facility] 2022-07-22 00:00:00 2022-07-22 00:00:00 [facility] 1.2.840.114 350.1.13.10 4.2.7.2.686 [id number] [facility] 2022-07-18 00:00:00 2022-07-18 00:00:00 [facility] 1.2.840.114 350.1.13.10 4.2.7.2.686 [id number] [facility] 2022-07-12 00:00:00 2022-07-12 00:00:00 [facility] 1.2.840.114 350.1.13.10 4.2.7.2.686 [id number] [facility] 2022-06-11 00:00:00 2022-06-11 00:00:00 [facility] 1.2840.114 350.1.13.10 4.2.7.2.686 [id number] [facility] 2022-04-14 00:00:00 2022-04-14 00:00:00 [facility] 1.2.840.114 350.1.13.10 4.2.7.2.686 [id number] [facility] 2022-04-08 00:00:00 2022-04-08 00:00:00 Case Management Aubrie Mohan [facility]RYSTY[facility] SOR[facility] 1.20.114 350.1.13.10 4.2.7.2.686 [id number] [facility] 2022-04-07 00:00:00 2022-04-07 00:00:00 Telephone Gretchen Perez [facility] 1.2840.114 350.1.13.10 4.2.7.2.686 [id number] [facility] 2022-04-01 00:00:00 2022-04-01 00:00:00 Telephone Tushar Abbe [facility] 1..114 350.1.13.10 4.2.7.2.686 [id number] [facility] 2022-03-25 00:00:00 2022-03-25 00:00:00 Orders Only Doctor Unassigned, Eliza [facility] 1..114 350.1.13.10 4.2.7.2.686 [id number] [id number] [facility] 2022-03-24 00:00:00 2022-03-24 00:00:00 Patient Secure Msg Doctor Unassigned, Eliza [facility] 1..114 350.1.13.10 4.2.7.2.686 [id number] [facility] 2022-03-19 00:00:00 2022-03-19 00:00:00 Telephone Tushar Abbe [facility] 1..114 350.1.13.10 4.2.7.2.686 [id number] [facility] 2022-03-17 08:00:00 2022-03-17 08:20:00 Office Visit Tushar [facility] 1.2840.114 350.1.13.10 4.2.7.2.686 [id number] [facility] 2022-03-17 08:00:00 2022-03-17 08:00:00 Outpatient R TUSHAR [facility] [id number] [facility] 2022-03-17 08:00:00 2022-03-17 08:00:00 Outpatient R TUSHAR [facility] [id number] [facility] 2022-01-16 00:00:00 2022-01-16 00:00:[facility] [place] 1.2840.114 350.1.13.10 4.2.7.2.686 [id number] [facility] 2022-01-13 00:00:00 2022-01-13 00:00:00 Refill Randloph Michelle [facility] [place] 1.2840.114 350.1.13.10 4.2.7.2.686 [id number] [facility] 2022-01-13 00:00:00 2022-01-13 00:00:00 Refill Tushar, [facility] [place] 1.2840.114 350.1.13.10 4.2.7.2.686 [id number] [facility] 2022-01-13 00:00:00 2022-01-13 00:00:00 Refill Tushar, [facility] [place] 1.2840.114 350.1.13.10 4.2.7.2.686 [id number] [facility] 2021-12-17 08:00:00 2021-12-17 08:20:00 Office Visit Tushar, [facility] [place] 1.2840.114 350.1.13.10 4.2.7.2.686 [id number] [facility] 2021-12-17 08:00:00 2021-12-17 08:00:00 Outpatient R TUSHAR [facility] [id number] [facility] 2021-12-17 08:00:00 2021-12-17 08:00:00 Outpatient R TUSHAR [facility] [id number] [facility] 2021-10-16 00:00:00 2021-10-16 00:00:00 Refill Tushar [facility] [place] 1.2.840.114 350.1.13.10 4.2.7.2.686 [id number] [facility] 2021-10-16 00:00:00 2021-10-16 00:00:00 Refill Tushar, [facility] [place] 1.2.840.114 350.1.13.10 4.2.7.2.686 [id number] [facility] 2021-10-16 00:00:00 2021-10-16 00:00:00 Refill Randolph Michelle [facility] [place] 1.2.840.114 350.1.13.10 4.2.7.2.686 [id number] [facility] 2021-09-14 00:00:00 2021-09-14 00:00:00 Refill Tushar, [facility] [place] 1.2.840.114 350.1.13.10 4.2.7.2.686 [id number] [facility] 2021-09-12 00:00:00 2021-09-12 00:00:00 Refill Tushar, [facility] [place] 1.2.840.114 350.1.13.10 4.2.7.2.686 [id number] [facility] 2021-06-19 12:49:47 2021-06-19 13:09:47 Office Visit Tushar [facility] 1.2.840.114 350.1.13.10 4.2.7.2.686 [id number] [facility] 2021-06-19 13:00:00 2021-06-19 13:00:00 Outpatient R TUSHAR [facility] [id number] [facility] 2021-06-09 00:00:00 2021-06-09 00:00:00 Refill Tushar [facility] 1.2.840.114 350.1.13.10 4.2.7.2.686 [id number] [facility] 2021-06-09 00:00:00 2021-06-09 00:00:00 Refill Tushar [facility] 1.2.840.114 350.1.13.10 4.2.7.2.686 [id number] [facility] 2021-06-09 00:00:00 2021-06-09 00:00:00 Refill Tushar [facility] 1.2.840.114 350.1.13.10 4.2.7.2.686 [id number] [facility] 2021-06-09 00:00:00 2021-06-09 00:00:00 [facility] 1.2.840.114 350.1.13.10 4.2.7.2.686 [id number] [facility] 2021-05-15 00:00:00 2021-05-15 00:00:00 Outpatient [facility] [id number] [facility] 2021-05-09 00:00:00 2021-05-09 00:00:00 Refill Tushar [facility] 1.2840.114 350.1.13.10 4.2.7.2.686 [id number] [facility] 2021-03-19 00:00:00 2021-03-19 00:00:00 Telephone Tushar [facility] 1.2840.114 350.1.13.10 4.2.7.2.686 [id number] [facility] 2021-03-18 08:13:56 2021-03-18 08:33:56 Office Visit Tushar [facility] 1.2840.114 350.1.13.10 4.2.7.2.686 [id number] [facility] 2021-03-18 08:20:00 2021-03-18 08:20:00 Outpatient R TUSHAR [facility] [id number] [facility] 2021-03-18 00:00:00 2021-03-18 00:00:00 Orders Only Doctor Unassigned, Eliza [facility] 1.2840.114 350.1.13.10 4.2.7.2.686 [id number] [id number] [facility] 2021-01-17 00:00:00 2021-01-17 00:00:00 Refill Tushar [facility] 1.2840.114 350.1.13.10 4.2.7.2.686 [id number] [facility] 2021-01-16 00:00:00 2021-01-16 00:00:00 [facility] 1.2840.114 350.1.13.10 4.2.7.2.686 [id number] [facility] 2020-12-27 00:00:00 2020-12-27 00:00:00 Patient Outreach Otis Soni [facility] 1..114 350.1.13.10 4.2.7.2.686 [id number] [facility] 2020-10-15 00:00:00 2020-10-15 00:00:00 Refill Tushar, [facility] 1.84.114 350.1.13.10 4.2.7.2.686 [id number] [facility] 2020-10-13 00:00:00 2020-10-13 00:00:00 Refill Tushar [facility] 1..114 350.1.13.10 4.2.7.2.686 [id number] [facility] 2020-09-19 00:00:00 2020-09-19 00:00:00 Patient Secure Msg Doctor Unassigned, Eliza [facility] 1.84.114 350.1.13.10 4.2.7.2.686 [id number] [facility] 2020-09-17 08:32:32 2020-09-17 08:52:32 Office Visit Tushar [facility] 1.84.114 350.1.13.10 4.2.7.2.686 [id number] [facility] 2020-09-17 08:40:00 2020-09-17 08:40:00 Outpatient R TUSHAR ABBE [facility] [id number] [facility] 2020-09-17 00:00:00 2020-09-17 00:00:00 Telephone Tushar [facility] 1.84.114 350.1.13.10 4.2.7.2.686 [id number] [facility] 2020-09-03 00:00:00 2020-09-03 00:00:00 Patient Secure Msg Doctor Unassigned, Eliza [facility] 1.2.840.114 350.1.13.10 4.2.7.2.686 [id number] [facility] 2020-07-10 00:00:00 2020-07-10 00:00:00 Refill Tushar [facility] [place] 1.2840.114 350.1.13.10 4.2.7.2.686 [id number] [facility] 2020-07-06 00:00:00 2020-07-06 00:00:00 Refill Tushar, [facility] [place] 1.2840.114 350.1.13.10 4.2.7.2.686 [id number] [facility] 2020-05-23 00:00:00 2020-05-23 00:00:00 Patient Secure Msg Doctor Unassigned, Eliza [facility] 1.2.840.114 350.1.13.10 4.2.7.2.686 [id number] [facility] 2020-04-09 00:00:00 2020-04-09 00:00:00 Telephone Tushar, [facility] [place] 1.2.840.114 350.1.13.10 4.2.7.2.686 [id number] [facility] 2020-04-06 09:39:24 2020-04-06 10:44:58 Office Visit Tushar [facility] [place] 1.2.840.114 350.1.13.10 4.2.7.2.686 [id number] [facility] 2020-04-06 09:45:00 2020-04-06 09:45:00 Outpatient ABBE TIRADO [facility] [id number] [facility] 2020-04-02 00:00:00 2020-04-02 00:00:00 Refill Tushar [facility] 1.2.840.114 350.1.13.10 4.2.7.2.686 [id number] [facility] 2019-11-10 00:00:00 2019-11-10 00:00:00 Patient Secure Msg Doctor Unassigned, Eliza [facility] 1.2.840.114 350.1.13.10 4.2.7.2.686 [id number] [facility] 2019-10-18 14:39:27 2019-10-18 23:59:00 Outpatient Maricruz FINLEY [facility] [id number] [facility] Results Test Description Test Time Test Comments Results Result Co mments Source [facility] WITH [id number] 08:56:42* Test Item Value Reference Range Interpretation Comme nts WBC (test code = 6690-2) See_Comment H [Automated messa ge] The system which generated this result transmitted reference range: 4.20 - 10.70 10*3/?L. The reference range was not used to interpret this result as normal/abnormal. RBC (test code = 789-8) See_Comment [Automated [employer] ge] The system which generated this result transmitted reference range: 4.26 - 5.52 10*6/?L. The reference range was not used to interpret this result as normal/abnormal. HGB (test code = 718-7) 15.2 g/dL 12.2-16.4 HCT (test code = 4544-3) 44.5 % 38.4-49.3 MCV (test code = 787-2) 85.9 fL 81.7-95.6 MCH (test code = 785-6) 29.3 pg 26.1-32.7 MCHC (test code = 786-4) 34.2 g/dL 31.2-35.0 RDW-SD (test code = 28526-7) 40.1 fL 38.5-51.6 RDW-CV (test code = 788-0) 12.9 % 12.1-15.4 PLT (test code = 777-3) See_Comment [Automated messa ge] The system which generated this result transmitted reference range: 150 - 328 10*3/?L. The reference range was not used to interpret this result as normal/abnormal. MPV (test code = 87324-6) 10.8 fL 9.8-13.0 NRBC/100 WBC (test code = 4725356294) See_Comment [Automated [employer] ssage] The system which generated this result transmitted reference range: 0.0 - 10.0 /100 WBCs. The reference range was not used to interpret this result as normal/abnormal. NRBC x10^3 (test code = 8136286113) See_Comment [Automated messa ge] The system which generated this result transmitted reference range: 10*3/?L. The reference range was not used to interpret this result as normal/abnormal. GRAN MAT (NEUT) % (test code = 770-8) 70.5 % IMM GRAN % (test code = 9916023597) 0.30 % LYMPH % (test code = 736-9) 20.0 % MONO % (test code = 5905-5) 7.5 % EOS % (test code = 713-8) 1.3 % BASO % (test code = 706-2) 0.4 % GRAN MAT x10^3(ANC) (test code = 0776743543) 8.29 10*3/uL 1.99-6.95 H IMM GRAN x10^3 (test code = 6132931823) 0.03 10*3/uL 0.00-0.06 LYMPH x10^3 (test code = 731-0) 2.35 10*3/uL 1.09-3.23 MONO x10^3 (test code = 742-7) 0.88 10*3/uL 0.36-1.02 EOS x10^3 (test code = 711-2) 0.15 10*3/uL 0.06-0.53 BASO x10^3 (test code = 704-7) 0.05 10*3/uL 0.01-0.09 Lab Interpretation (test code = 53073-5) [id number]:59[facility]00* Test Item Value Reference Range Interpretation Comme nts MARCUS (test code = MARCUS) Test Result Negati ve NEGATIVE TEST RESULT. A negative Cologuard result indicates a low likelihood that a colorectal cancer (CRC) or advanced adenoma (adenomatous polyps with more advanced pre-malignant features) ?is present. The chance that a person with a negative Cologuard test has a colorectal cancer is less than 1 in 1500 (negative predictive value >99.9%) or has an ?advanced adenoma is less than ?5.3% (negative predictive value 94.7%). These data are based on a prospective cross-sectional study of 10,000 individuals at average risk for colorectal cancer who were screened with both Cologuard and colonoscopy. (Melyssa Gray et al, N Engl J Med 2014;370(14):4554-7047) The normal value (reference range) for this assay is negative. COLOGUARD RE-SCREENING RECOMMENDATION: Periodic colorectal cancer screening is an important part of preventive healthcare for asymptomatic individuals at average risk for colorectal cancer. ?Following a negative Cologuard result, the [employer] and U.S. Multi-Society Task Force?screening guidelines recommend a Cologuard re-screening interval of 3 years. References: [employer] Guideline for Colorectal Cancer Screening: https://www.cancer.org/ cancer/gxwgy-cibtmk-rrj cer/detection-diagnosis -staging/acs-recommenda tions.html.; Zeke ROOT, Zane AGUILLON, Marj NolandK, Colorectal Cancer Screening: Recommendations for Physicians and Patients from the U.S. Multi-Society Task Force on Colorectal Cancer Screening , Am J Gastroenterology 2017; 112:3325-2324. TEST DESCRIPTION: Composite algorithmic analysis of stool DNA-biomarkers with hemoglobin immunoassay. ? Quantitative values of individual biomarkers are not reportable and are not associated with individual biomarker result reference ranges. Cologuard is intended for colorectal cancer screening of adults of either sex, 45 years or older, who are at average-risk for colorectal cancer (CRC). Cologuard has been approved for use by the U.S. FDA. The performance of Cologuard was established in a cross sectional study of average-risk adults aged 50-84. Cologuard performance in patients ages 45 to 49 years was estimated by sub-group analysis of near-age groups. Colonoscopies performed for a positive result may find as the most clinically significant lesion: colorectal cancer [4.0%], advanced adenoma (including sessile serrated polyps greater than or equal to 1cm diameter) [20%] or non- advanced adenoma [31%]; or no colorectal neoplasia [45%]. These estimates are derived from a prospectivecross-sectio nal screening study of 10,000 individuals at average risk for colorectal cancer who were screened with both Cologuard and colonoscopy. (Melyssa Islas. et al, N Engl J Med 2014;370(14):7755-8787. ) Cologuard may produce a false negative or false positive result (no colorectal cancer or?precancerous polyp present at colonoscopy follow up). A negative Cologuard test result does not guarantee the absence of CRC or advanced adenoma (pre-cancer). The current Cologuard screening interval is every 3 years. ([employer] and U.S. Multi-Society Task Force). Cologuard performance data in a 10,000 patient pivotal study using colonoscopy as the reference method can be accessed at the following location: www.[employer]/resul ts. Additional description of the Cologuard test process, warnings and precautions can be found at www.[employer] [employer] (CLIA #:[id number]) Specimen Collected: 03/23/22 ?5:15 PM Last Resulted: 03/29/22 ?9:59 AMReceived From: Project 2020 Result Received: 04/08/22 ?9:02 AM Lab Interpretation (test code = 92721-0) Normal [facility] Notes Date/Time Note Provider Source 2024-09-29 14:29:48 Maintenance dose sent. [facility] 2024-09-29 14:00:59 Erika Cornejo is a 49 year old male Patient called asking if he can have enough of all 3 medications until his 10/18 visit. Please contact [phone] (home) ENA Farr [facility] 2024-09-02 11:41:59 Called pt and LVM to schedule f/u appt. ENA Schroeder [facility] 2024-09-01 09:03:09 Appointment needed for refills ENA Polo RN [facility]
[2025-02-21 05:56] LABS: Absolute Eosinophils 0.2 K/uL (0-0.5); Absolute Lymphocytes (CBC) 1.9 K/uL (0.7-4.9); Absolute Monocytes 0.8 K/uL (0.1-1.3); Absolute Neutrophil 6.3 K/uL (1.8-8.0); Basophils % 0.4 % (0-1.3); Eosinophils % 1.9 % (0-4.4); Hematocrit 43.2 % (39.6-49.0); Hemoglobin 15.3 g/dL (13.6-17.9); Lymphocytes % 20.9 % (15.3-44.8); MCH 30.6 pg (27.0-35.0); MCHC 35.4 g/dL (32.0-36.0); MCV 86.6 fL (80-100); MPV 9.4 fL (7.6-11.3); Monocytes % 8.3 % (3.3-12.3); Neutrophils % 68.5 % (41.7-73.7); Nucleated Red Blood Cells % 0.1 % (0-0); Platelets 213 thou/uL (152-406); RBC Red Blood Cell Count 4.99 M/uL (4.33-5.43); Red Cell Distribution Width 13.5 % (12.1-15.2)
[2025-02-21 05:59] LABS: PT Prothrombin Time 11.5 SECONDS (10-13.0); Protime INR 1.01
[2025-02-21 06:16] LABS: Albumin 3.9 g/dL (3.4-5.0); Albumin/Globulin Ratio 1.1 (1.1-1.8); Anion Gap 9.9 mEq/L (5.0-15.0); Bilirubin Direct 0.2 mg/dL (0-0.2); Bilirubin Indirect, Calculated 0.8 mg/dL (0.2-0.8); Globulin 3.6 g/dL (2.3-3.5); Magnesium 1.9 mg/dL (1.6-2.4); Potassium 3.9 mEq/L (3.5-5.1); Protein, Total 7.5 g/dL (6.4-8.2); Troponin High Sensitivity 3.7 pg/mL (<58.9)
--- NOTE | 2025-02-21 06:29 | RAD REPORT ---
EXAM: XR CHEST 1 VIEW HISTORY: 50 years Male CHEST PAIN COMPARISON: None. FINDINGS: LUNGS/PLEURA: The lungs are clear. No pleural effusions or pneumothorax. No pulmonary edema. CARDIAC/MEDIASTINUM: The cardiac silhouette is within normal limits. UPPER ABDOMEN: No significant abnormality. BONES: No acute abnormality. LINES/TUBES/OTHER: N/A IMPRESSION: No acute cardiopulmonary disease. Electronically signed by: Rangel Palomino MD 02/21/2025 06:24 AM CDT Due to temporary technical issues with the PACS/Senic reporting system, reports are being paul d by the in-house radiologist without review as a courtesy to ensure prompt reporting the interpreting radiologist is fully responsible for the content of the report. Transcribed Date/Time: 02/21/2025 6:29 AM
[2025-02-21] MEDS ORDERED: ONDANSETRON 4 MG/2 ML VIAL ONE (06:32)
[2025-02-21] MEDS ORDERED: ASPIRIN 81 MG CHEWABLE TABLET ONE (06:33)
--- NOTE | 2025-02-21 08:45 | EDPHYS ---
Physician Documentation [facility] Name: John Villalobos Age: 50 yrs Sex: Male : 1975 Arrival Date: 02/21/2025 Time: 05:17 Bed 5 Private MD: ED Physician Aidan Hoover HPI: 02/21 05:33 This 50 yrs old Male presents to ER via Ambulatory with complaints of Chest sp4 Pain. 06:35 50-year-old male presents with acute chest pressure starting at 4:40 AM. History of sp4 prior cardiac workup with negative left heart cath 3-1/2 years ago. Historical: - Allergies: 05:31 No Known Allergies; vc1 - PMHx: 05:31 Hypercholesterolemia; Hypertensive disorder; fatty liver disease; vc1 - PSHx: 05:31 None; vc1 - Immunization history:: Flu vaccine is up to date. - Infectious Disease History:: Denies. - Social history:: Smoking status: Patient denies any tobacco usage or history of. - Family history:: not pertinent. ROS: 06:35 Constitutional: Negative for fever, chills, and weight loss, positive for acute chest sp4 pressure 06:35 All other systems are negative, Exam: 06:35 Constitutional: This is a well developed, well nourished patient who is awake, alert, sp4 and in no acute distress. Head/Face: Normocephalic, atraumatic. Eyes: Pupils equal round and reactive to light, extra-ocular motions intact. Lids and lashes normal. Conjunctiva and sclera are not injected. Cornea within normal limits. Periorbital areas with no swelling, redness, or edema. ENT: Nares patent. No nasal discharge, no septal abnormalities noted. Tympanic membranes are normal and external auditory canals are clear. Oropharynx with no redness, swelling, or masses, exudates, or evidence of obstruction, uvula midline. Mucous membranes moist. Neck: Trachea midline, no thyromegaly or masses palpated, and no cervical lymphadenopathy. Supple, full range of motion without nuchal rigidity, or vertebral point tenderness. Chest/axilla: Normal chest wall appearance and motion. Nontender with no deformity. No lesions are appreciated. Cardiovascular: Regular rate and rhythm with a normal S1 and S2. No gallops, murmurs, or rubs. Normal PMI, no JVD. No pulse deficits. Respiratory: Lungs have equal breath sounds bilaterally, clear to auscultation and percussion. No rales, rhonchi or wheezes noted. No increased work of breathing, no retractions or nasal flaring. Abdomen/GI: Soft, with normal bowel sounds. No distension or tympany. No guarding or rebound. No evidence of tenderness throughout. Back: No spinal tenderness. No costovertebral tenderness. Skin: Warm, dry with normal turgor. Normal color with no rashes, no lesions, and no evidence of cellulitis. MS/ Extremity: Pulses equal, no cyanosis. Neurovascular intact. Full, normal range of motion. Neuro: Awake and alert, GCS 15, oriented to person, place, time, and situation. Cranial nerves II-XII grossly intact. Motor strength 5/5 in all extremities. Sensory grossly intact. Psych: Awake, alert, with orientation to person, place and time. Behavior, mood, and affect are within normal limits 06:35 ECG was reviewed by the Attending Physician. EKG at 0 534 normal sinus rhythm rate 74, Vital Signs: 05:29 BP 147 / 98; Pulse 82; Resp 16; Pulse Ox 100% ; Weight 78.47 kg; Height 5 ft. 8 in. ; vc1 Pain 3/10; 06:36 BP 131 / 83; Pulse 71; Resp 16; Pulse Ox 97% on R/A; kd3 07:22 BP 125 / 83; Pulse 64; Resp 18; Pulse Ox 96% on R/A; mb9 08:59 BP 117 / 80; Pulse 68; Resp 16; Pulse Ox 100% on R/A; mb9 05:29 Body Mass Index 26.30 (78.47 kg, 172.72 cm) vc1 05:29 Pain Scale: Adult vc1 Mac Coma Score: 06:35 Eye Response: spontaneous(4). Motor Response: obeys commands(6). Verbal Response: sp4 oriented(5). Total: 15. MDM: 05:34 Medical Screening Exam initiated sp4 07:36 Data reviewed: vital signs, nurses notes, lab test result(s), EKG, radiologic studies, sp4 plain films. ED course: EXAM: XR CHEST 1 VIEW HISTORY: 50 years Male CHEST PAIN COMPARISON: None. FINDINGS: LUNGS/PLEURA: The lungs are clear. No pleural effusions or pneumothorax. No pulmonary edema. CARDIAC/MEDIASTINUM: The cardiac silhouette is within normal limits. UPPER ABDOMEN: No significant abnormality. BONES: No acute abnormality. LINES/TUBES/OTHER: N/A IMPRESSION: No acute cardiopulmonary disease. . 07:36 HEART Score: History: Slightly Suspicious (0), ECG: Normal (0), Age: > 45 and < 65 sp4 years (1), Risk Factors: 1 or 2 risk factors (1), Troponin: < or = 1 x Normal Limit (0), Total Score = 2. The patient was given aspirin in the Emergency Department. Transition of care: After a detail discussion of the patient's case, care is transferred to Aidan Hoover MD. ED course: Will request second troponin at 8 AM. 08:04 ED course: Patient signed out to me by Dr. Benton. Plan is to get second troponin at rn 8 AM and if negative can go home. Was told negative cath somewhat recently.. 08:43 Differential diagnosis: acute pericarditis, anxiety, coronary artery disease chest wall rn pain, costochondritis, esophagitis, gastritis, gastroesophageal reflux disease (GERD), pleurisy, pneumothorax. 02/21 05:34 Order name: Basic Metabolic Panel; Complete Time: 06:30 4 02/21 05:34 Order name: CBC with Diff; Complete Time: 06:30 4 02/21 05:34 Order name: LFT's; Complete Time: 06:30 4 02/21 05:34 Order name: Magnesium; Complete Time: 06:30 4 02/21 05:34 Order name: NT PRO-BNP; Complete Time: 06:30 4 02/21 05:34 Order name: PT-INR; Complete Time: 06:30 4 02/21 05:34 Order name: Troponin HS; Complete Time: 06:30 4 02/21 07:37 Order name: Troponin High Sensitivity; Complete Time: 08:43 4 02/21 05:34 Order name: XRAY Chest (1 view) 02/21 05:34 Order name: Cardiac monitoring; Complete Time: 05:47 4 02/21 05:34 Order name: EKG - Nurse/Tech; Complete Time: 05:47 4 02/21 05:34 Order name: IV Saline Lock; Complete Time: 05:47 sp4 02/21 05:34 Order name: Labs collected and sent; Complete Time: 05:47 sp4 02/21 05:34 Order name: O2 Per Protocol; Complete Time: :47 sp4 02/21 05:34 Order name: O2 Sat Monitoring; Complete Time: 05:47 sp4 EC:34 Rate is 74 beats/min. Rhythm is regular, Normal Sinus Rhythm. QRS [place] is Normal. ID sp4 interval is normal. QRS interval is normal. QT interval is normal. No Q waves. T waves are Normal. No ST changes noted. Clinical impression: Normal ECG. Interpreted by me. Reviewed by me. Administered Medications: 06:35 Not Given (Patient Refused): ondansetron 4 mg IVP once; over 2 minutes kd3 06:35 Drug: Aspirin PO Chewable Tablet 324 mg PO once; 81 mg tablets x 4 Route: PO; kd3 07:56 Follow up: Response: No adverse reaction mb9 Disposition Summary: 02/21/25 08:45 Discharge Ordered Notes: Location: Home rn Problem: new rn Symptoms: have improved rn Condition: Stable rn Diagnosis - Chest pain, unspecified rn Followup: rn - With: Private Physician - When: As needed - Reason: Recheck today's complaints, Re-evaluation by your physician Discharge Instructions: - Discharge Summary Sheet rn - Nonspecific Chest Pain, Adult rn - Pain Without a Known Cause rn Forms: - Medication Reconciliation Form rn - Antibiotic rn teacher - Prescription Opioid Use rn - Patient Portal Instructions rn - Leadership Thank You Letter rn Signatures: Dispatcher [employer] EDMS Aidan Hoover MD MD rn Doucette, Kyli RN RN kd3 Nanda Howard, RN RN 1 Robbie Benton MD MD sp4 Lora Cobb RN mb9 Corrections: (The following items were deleted from the chart) 05:34 05:34 BASIC METABOLIC PANEL+C.LAB.BRZ ordered. EDMS EDMS 05:34 05:34 CBC+H.LAB.BRZ ordered. EDMS EDMS 05:34 05:34 HEPATIC FUNCTION+C.LAB.BRZ ordered. EDMS EDMS 05:34 05:34 MAGNESIUM+C.LAB.BRZ ordered. EDMS EDMS 05:34 05:34 PROBNP+C.LAB.BRZ ordered. EDMS EDMS 05:34 05:34 PROTIME (+INR)+COAG.LAB.BRZ ordered. EDMS EDMS 05:34 05:34 Troponin High Sensitivity+C.LAB.BRZ ordered. EDMS EDMS 05:34 05:34 Chest Single View+RAD.RAD.BRZ ordered. EDMS EDMS
--- NOTE | 2025-02-21 08:45 | ER ---
Nurse's Notes [facility] Name: John Villalobos Age: 50 yrs Sex: Male : 1975 Arrival Date: 02/21/2025 Time: 05:17 Bed 5 Private MD: Diagnosis: Chest pain, unspecified Presentation: 02/21 05:29 Chief complaint: Patient states: chest feels tight with some palpitations. Coronavirus vc1 screen: Client denies travel out of the [place] in the last 14 days. At this time, the client does not indicate any symptoms associated with coronavirus-19. Ebola Screen: Patient negative for fever greater than or equal to 101.5 degrees Fahrenheit, and additional compatible Ebola Virus Disease symptoms Patient denies exposure to infectious person. Patient denies travel to an Ebola-affected area in the 21 days before illness onset. No symptoms or risks identified at this time. Initial Sepsis Screen: Does the patient meet any 2 criteria? No. Patient's initial sepsis screen is negative. Does the patient have a suspected source of infection? No. Patient's initial sepsis screen is negative. Risk Assessment: Do you want to hurt yourself or someone else? Patient reports no desire to harm self or others. Onset of symptoms was February 21, 2025 at 05:00. Care prior to arrival: None. 05:29 Method Of Arrival: Ambulatory vc1 05:29 Acuity: EFRAIN 3 vc1 Triage Assessment: 05:35 General: Appears in no apparent distress. uncomfortable, Behavior is calm, cooperative, vc1 appropriate for age. Pain: Complains of pain in anterior aspect of left upper chest and mid-sternal area Pain does not radiate. Pain currently is 4 out of 10 on a pain scale. Quality of pain is described as pressure, Pain began suddenly, 30 min ago. Also complains of nausea. EENT: No deficits noted. No signs and/or symptoms were reported regarding the EENT system. Neuro: Level of Consciousness is awake, alert, obeys commands, Oriented to person, place, time, situation, Appropriate for age. Cardiovascular: Reports chest pain, lightheadedness, nausea, palpitations, since 30 min [employer] Heart tones S1 S2 present Capillary refill < 3 seconds Patient's skin is warm and dry. Chest pain is described as mild, quality is pressure. Respiratory: Airway is patent Respiratory effort is even, unlabored, Respiratory pattern is regular, symmetrical, Breath sounds are clear bilaterally. GI: No deficits noted. No signs and/or symptoms were reported involving the gastrointestinal system. : No deficits noted. No signs and/or symptoms were reported regarding the genitourinary system. Derm: Skin is intact, is healthy with good turgor, Skin is dry, Skin is normal, Skin temperature is warm. Musculoskeletal: Circulation, motion, and sensation intact. Range of motion: intact in all extremities. Historical: - Allergies: 05:31 No Known Allergies; vc1 - PMHx: 05:31 Hypercholesterolemia; Hypertensive disorder; fatty liver disease; vc1 - PSHx: 05:31 None; vc1 - Immunization history:: Flu vaccine is up to date. - Infectious Disease History:: Denies. - Social history:: Smoking status: Patient denies any tobacco usage or history of. - Family history:: not pertinent. Screenin:34 [facility] ED Fall Risk Assessment (Adult) History of falling in the last 3 months, vc1 including since admission No falls in past 3 months (0 pts) Confusion or Disorientation No (0 pts) Intoxicated or Sedated No (0 pts) Impaired Gait No (0 pts) Mobility Assist Device Used No (0 pt) Altered Elimination No (0 pt) Score/Fall Risk Level 0 - 2 = Low Risk Oriented to surroundings, Maintained a safe environment, Educated pt \T\ family on fall prevention, incl call for assistance when getting out of bed, Hourly rounding (assess needs \T\ fall precautionary measures) done. Abuse screen: Denies threats or abuse. Nutritional screening: No deficits noted. Tuberculosis screening: No symptoms or risk factors identified. Assessment: 06:35 General: Appears in no apparent distress. Behavior is calm, cooperative. Pain: kd3 Complains of pain in mid-sternal area. Neuro: Level of Consciousness is awake, alert, obeys commands, Oriented to person, place, time, situation. Cardiovascular: Capillary refill < 3 seconds Patient's skin is warm and dry. Respiratory: Airway is patent Trachea midline Respiratory effort is even, unlabored, Respiratory pattern is regular, symmetrical. 07:56 Reassessment: No changes from previously documented assessment. Patient and/or family mb9 updated on plan of care and expected duration. Pain level reassessed. Patient is alert, oriented x 3, equal unlabored respirations, skin warm/dry/pink. 08:59 Reassessment: Patient appears in no apparent distress at this time. No changes from mb9 previously documented assessment. Patient and/or family updated on plan of care and expected duration. Pain level reassessed. Vital Signs: 05:29 BP 147 / 98; Pulse 82; Resp 16; Pulse Ox 100% ; Weight 78.47 kg; Height 5 ft. 8 in. ; vc1 Pain 3/10; 06:36 BP 131 / 83; Pulse 71; Resp 16; Pulse Ox 97% on R/A; kd3 07:22 BP 125 / 83; Pulse 64; Resp 18; Pulse Ox 96% on R/A; mb9 08:59 BP 117 / 80; Pulse 68; Resp 16; Pulse Ox 100% on R/A; mb9 05:29 Body Mass Index 26.30 (78.47 kg, 172.72 cm) vc1 05:29 Pain Scale: Adult vc1 Mac Coma Score: 06:35 Eye Response: spontaneous(4). Motor Response: obeys commands(6). Verbal Response: sp4 oriented(5). Total: 15. ED Course: 05:20 Patient arrived in ED. mr 05:31 Triage completed. vc1 05:31 Arm band placed on right wrist. vc1 05:33 Robbie Benton MD is Attending Physician. sp4 05:37 Patient has correct armband on for positive identification. Bed in low position. Call vc1 light in reach. Provided Education on: Plan of care. business continuity strategy director on. Pulse ox on. NIBP on. 05:47 Initial lab(s) drawn, by mt, sent to lab. Inserted saline lock: 20 gauge in right rk3 antecubital area, using aseptic technique. Blood collected. Flushed with 10 mL NS. 06:08 XRAY Chest (1 view) In Process Unspecified. EDMS 06:35 Em Pelaez, FREDDY is Primary Nurse. kd3 06:36 Patient maintains SpO2 saturation greater than 95% on room air. kd3 07:44 Attending Physician role handed off by Robbie Benton MD rn 07:44 Aidan Hoover MD is Attending Physician. rn 07:56 Troponin High Sensitivity Sent. mb9 07:56 No provider procedures requiring assistance completed. mb9 08:59 IV discontinued, intact, bleeding controlled, No redness/swelling at site. Pressure mb9 dressing applied. Administered Medications: 06:35 Not Given (Patient Refused): ondansetron 4 mg IVP once; over 2 minutes kd3 06:35 Drug: Aspirin PO Chewable Tablet 324 mg PO once; 81 mg tablets x 4 Route: PO; kd3 07:56 Follow up: Response: No adverse reaction mb9 Medication: 05:38 VIS not applicable for this client. vc1 Outcome: 08:45 Discharge ordered by . rn 08:59 Discharged to home ambulatory, mb9 08:59 Condition: stable 08:59 Discharge instructions given to patient, Instructed on discharge instructions, follow up and referral plans. Demonstrated understanding of instructions, follow-up care, 08:59 Patient left the ED. mb9 Signatures: Dispatcher [employer] EDMT Lora Mendoza, Reg Reg mr Aidan Hoover MD MD rn Doucette, Kyli, RN RN kd3 Nanda Howard RN RN vc1 Lora Cobb, FREDDY RN mb9 Robbie Benton MD MD sp4 Emy Abarca rk3
[2025-02-21 09:26] VITALS: BP 117/80; O2SAT 100
--- NOTE | 2025-02-22 12:22 | EKG ---
Test Date: 2025-02-21 Test Time: 05:34:35 Crisis Worker: HEATHER MEASUREMENT RESULTS: Intervals: Rate: 74 IN: 190 QRSD: 98 QT: 364 QTc: 404 [place]: P: 74 IN: 190 QRS: 38 T: 62 INTERPRETIVE STATEMENTS: Normal sinus rhythm Normal ECG Compared to ECG 10/30/2022 06:26:39 No significant changes Electronically Signed On 02-22-25 12:20:15 CDT by Jose F Alexander
== END 2025-02-21 08:59 | disposition home or self-care (01) ==
LOC: ER 05:17
DX: R07.9 Chest pain, unspecified (principal); I10 Essential (primary) hypertension; E78.00 Pure hypercholesterolemia, unspecified
CPT/HCPCS: 93005; 85025; 80048; 36415; 83735; 85610; 80076; 84484 ×2; 83880; 71045; 99284; J2405